=== PATIENT | male | born 1995 | race Two or more races ===

== ENCOUNTER 2020-05-03 13:02 | Outpatient (CLI) | payer OTHER | END 2020-05-03 14:46 | disposition home or self-care (01) | LOC: RAD 13:02 | PROVIDERS: ATTEND General Practice | DX: R05 Cough (principal) ==

== ENCOUNTER 2022-04-23 03:13 | Emergency (ER) | payer OTHER ==
[~2022-04-23] VITALS: Ht 180.3 cm; Wt 61.2 kg
[2022-04-23] MEDS ORDERED: CLEAR EYES REDNE6 ML OP (04:14)
[2022-04-23] MEDS ORDERED: GENTAK5 ML OP (04:14)
== END 2022-04-23 04:38 ==
LOC: ER 03:13
DX: H57.89 Other specified disorders of eye and adnexa (principal)